=== PATIENT | female | born 1965 | race Caucasian/White ===

== ENCOUNTER 2017-10-15 00:26 | Inpatient (IN) | payer OTHER, MEDICARE ==
[~2017-10-15] VITALS: Ht 160 cm; Wt 65.3 kg
[2017-10-15] MEDS ORDERED: ONDANSETRON HCL 4MG/2ML VIAL IV STA (03:04)
[2017-10-15] MEDS ORDERED: KETOROLAC 30MG/ML VIAL IV STA (03:04)
[2017-10-15] MEDS ORDERED: SODIUM CHLORIDE 0.9% 1,000 ML IV ONE (03:04)
[2017-10-15] MEDS ORDERED: FAMOTIDINE 20MG/2ML VIAL IV STA (03:04)
[2017-10-15 03:31] LABS: BASOPHILS % 0.4 % (0.0-2.0); EOSINOPHILS % 0.2 % (0.0-5.0); HEMATOCRIT. 44.2 % (36.0-48.0); HEMOGLOBIN. 14.9 g/dL (12.0-16.0); LYMPHOCYTES % 8.1 % (20.0-50.0); MEAN CORPUSCULAR HEMOGLOBIN 31.2 pg (28.0-32.0); MEAN CORPUSCULAR VOLUME 92.5 fL (81.0-99.0); MEAN PLATELET VOLUME 8.1 fl (7.4-10.4); NEUTROPHILS % 87.3 % (40.0-76.0); PLATELET 347 x1000/uL (130-400); RED BLOOD CELL COUNT 4.78 mill/uL (4.2-5.4); RED CELL DISTRIBUTION WIDTH 13.3 % (11.6-14.6)
[2017-10-15 03:46] LABS: CHLORIDE 104 mEq/L (98-107)
[2017-10-15] MEDS ORDERED: SODIUM CHLORIDE 0.9% 1,000 ML IV SCH (05:36)
[2017-10-15] MEDS ORDERED: MORPHINE SULFATE 4 MG/ML CPJ (NOT FOR IM USE) IV ONE (06:00)
[2017-10-15] MEDS ORDERED: ONDANSETRON HCL 4MG/2ML VIAL IV ONE (06:00)
[2017-10-15] MEDS ORDERED: IOHEXOL-300 100 ML BOTTLE ONE (06:17)
[2017-10-15] MEDS ORDERED: PIPERACILLIN/TAZ 3.375G PREMIX 50 ML IV SCH (07:30)
[2017-10-15] MEDS ORDERED: PANTOPRAZOLE SODIUM 40 MG/VIAL IV SCH (09:00)
[2017-10-15 12:00] VITALS: BP 110/61
[2017-10-15] MEDS ORDERED: VANCOMYCIN 1250MG in DEXTROSE 5% WATER 250ML IV SCH ×4 (13:00)
[2017-10-15] MEDS ORDERED: VANCOMYCIN 1,250 MG in SODIUM CHLORIDE 0.9% 250 ML IV SCH (13:00)
[2017-10-15] MEDS: NICOTINE 21MG PATCH TD SCH (13:00)
[2017-10-15 13:32] VITALS: BP 110/61
[2017-10-15] MEDS: MORPHINE SULFATE 4 MG/ML CPJ (NOT FOR IM USE) IV PRN ×2 (14:46→21:00)
[2017-10-15 16:00] VITALS: BP 107/46
[2017-10-15] MEDS: SODIUM CHLORIDE 0.9% 1,000 ML IV SCH (16:11)
[2017-10-15] MEDS: PIPERACILLIN/TAZ 3.375G PREMIX 50 ML IV SCH ×2 (17:12→22:47)
[2017-10-15 20:00] VITALS: BP 108/55
[2017-10-15] MEDS: ONDANSETRON HCL 4MG/2ML VIAL IV PRN (21:08)
[2017-10-16] VITALS: BP 109/59
[2017-10-16] MEDS: VANCOMYCIN 750 MG PREMIX 150 ML IV SCH ×2 (01:53→13:00)
[2017-10-16 04:00] VITALS: BP 143/53
[2017-10-16] MEDS: SODIUM CHLORIDE 0.9% 1,000 ML IV SCH ×2 (04:09→21:04)
[2017-10-16] MEDS: MORPHINE SULFATE 4 MG/ML CPJ (NOT FOR IM USE) IV PRN ×2 (04:10→20:57)
[2017-10-16] MEDS: PIPERACILLIN/TAZ 3.375G PREMIX 50 ML IV SCH ×2 (05:10→15:33)
[2017-10-16 06:52] LABS: BASOPHILS % 0.6 % (0.0-2.0); EOSINOPHILS % 2.2 % (0.0-5.0); HEMATOCRIT. 36.3 % (36.0-48.0); HEMOGLOBIN. 12.3 g/dL (12.0-16.0); LYMPHOCYTES % 33.8 % (20.0-50.0); MEAN CORPUSCULAR HEMOGLOBIN 31.5 pg (28.0-32.0); MEAN PLATELET VOLUME 8.5 fl (7.4-10.4); NEUTROPHILS % 52.4 % (40.0-76.0); PLATELET 267 x1000/uL (130-400); RED CELL DISTRIBUTION WIDTH 13.3 % (11.6-14.6)
[2017-10-16 07:42] LABS: CHLORIDE 110 mEq/L (98-107)
[2017-10-16 08:30] VITALS: BP 113/55
[2017-10-16] MEDS: NICOTINE 21MG PATCH TD SCH (09:00)
[2017-10-16] MEDS: PANTOPRAZOLE SODIUM 40 MG/VIAL IV SCH (09:17)
[2017-10-16] MEDS: HYDROCODONE/ACETAMINOPHEN 5/325MG TABLET PO PRN ×2 (09:19→16:12)
[2017-10-16] MEDS ORDERED: BUPR300T52 PO (10:38)
[2017-10-16] MEDS ORDERED: HYDR-2412 PO (10:41)
[2017-10-16 12:09] VITALS: BP 117/50
[2017-10-16] MEDS ORDERED: MEDICATION NOT ON FORMULARY EA (Bupropion Hcl (Wellbutrin Xl) 1 TAB) PO SCH (12:15)
[2017-10-16] MEDS: HYDROXYZINE 25MG TABLET PO SCH ×2 (13:00→16:12)
[2017-10-16] MEDS: BUPROPION HCL 150MG TABLET XL 24HR PO SCH (13:01)
[2017-10-16 16:00] VITALS: BP 123/60
[2017-10-16 20:00] VITALS: BP 109/51
[2017-10-17] VITALS: BP 100/55
[2017-10-17] MEDS: VANCOMYCIN 750 MG PREMIX 150 ML IV SCH ×2 (00:11→13:14)
[2017-10-17] MEDS: ONDANSETRON HCL 4MG/2ML VIAL IV PRN ×2 (00:14→10:59)
[2017-10-17] MEDS: PIPERACILLIN/TAZ 3.375G PREMIX 50 ML IV SCH ×2 (03:11→12:04)
[2017-10-17 04:00] VITALS: BP 98/56
[2017-10-17] MEDS ORDERED: ACETAMINOPHEN 325MG TABLET PO PRN (05:45)
[2017-10-17] MEDS ORDERED: DIATR MEGLU/DIATRIZOATE SOLN 30ML PO NR (07:45)
[2017-10-17 07:59] VITALS: BP 117/56
[2017-10-17] MEDS: PANTOPRAZOLE SODIUM 40 MG/VIAL IV SCH (08:34)
[2017-10-17] MEDS: SODIUM CHLORIDE 0.9% 1,000 ML IV SCH (08:38)
[2017-10-17] MEDS: NICOTINE 21MG PATCH TD SCH (08:41)
[2017-10-17] MEDS ORDERED: DIATR MEGLU/DIATRIZOATE SOLN 120ML ONE (09:06)
[2017-10-17] MEDS ORDERED: NICO-682 TD (10:45)
[2017-10-17] MEDS ORDERED: DOCUSATE SODIUM 250MG CAPSULE PO SCH (10:45)
[2017-10-17] MEDS ORDERED: BISACODYL 10MG SUPP PR PRN (10:45)
[2017-10-17] MEDS: HYDROXYZINE 25MG TABLET PO SCH (10:59)
[2017-10-17] MEDS: BUPROPION HCL 150MG TABLET XL 24HR PO SCH (10:59)
[2017-10-17 12:10] VITALS: BP 114/60
[2017-10-17 15:00] VITALS: BP 114/60
== END 2017-10-17 16:00 | disposition home or self-care (01) | DRG 389 ==
LOC: ER 00:26 → 8WST 05:37 → EDBEDREQ 06:54 → ENRESERV 10:27
PROVIDERS: ADMIT Internal Medicine; ATTEND Internal Medicine
DX: K56.609 Unspecified intestinal obstruction, unspecified as to partial versus complete obstruction (principal); G71.0 Muscular dystrophy; E78.5 Hyperlipidemia, unspecified; I10 Essential (primary) hypertension; F17.210 Nicotine dependence, cigarettes, uncomplicated; F32.9 Major depressive disorder, single episode, unspecified; J44.9 Chronic obstructive pulmonary disease, unspecified; Z90.722 Acquired absence of ovaries, bilateral; Z90.710 Acquired absence of both cervix and uterus
CPT/HCPCS: 36415; 71045; 74018; 74177; 74250; 80048; 80053; 80202; 83036; 83605; 83690; 85025; 87040; 96361; 96374; 96375; 99285; C9113; J1885; J2270; J2405; J2543; J3370; J3490; J7030; J7040; J7050; J7060; Q9963; Q9967